=== PATIENT | female | born 1985 | race Caucasian/White ===

== ENCOUNTER 2022-09-07 11:02 | Outpatient (CLI) | payer BC ==
[2022-09-07 13:01] LABS: #Basophils 0.1 10x3/uL (0.0-0.2); #Eosinphils 0.2 10x3/uL (0.0-0.5); #Monocytes 0.8 10x3/uL (0.0-1.1); #Neutrophils 5.1 10x3/uL (1.5-8.4); %Basophils 0.9 % (0.0-2.0); %Eosinophils 2.5 % (0.0-6.0); %Lymphocytes 28.6 % (18.0-47.0); %Monocytes 8.9 % (0.0-10.0); %Neutrophils 58.8 % (40.0-75.0); Hemoglobin 14.8 g/dL (12.0-15.5); Mean Corpuscular HGB CONC 35.1 g/dL (32.0-36.0); Mean Corpuscular Hemoglobin 30.1 pg (27.0-33.0); Mean Corpuscular Volume 85.9 fl (81.6-98.3); Mean Platelet Volume 9.4 fl (7.4-10.4); Platelet Count 328 10x3/uL (150-450); RBC Distribution Width 12.4 % (11.5-14.5); Red Blood Cell (RBC) Count 4.91 10x6/uL (3.90-5.03); White Blood Cell (WBC) Count 8.7 10x3/uL (3.5-10.5)
== END 2022-09-07 11:03 | disposition home or self-care (01) ==
LOC: LABBT 11:02
PROVIDERS: ATTEND Orthopaedic Surgery Hand Surgery
DX: Z01.812 Encounter for preprocedural laboratory examination (principal); G56.03 Carpal tunnel syndrome, bilateral upper limbs
CPT/HCPCS: 85025

== ENCOUNTER 2022-09-10 06:59 | Day surgery (SDC) | payer BC ==
[2022-09-09 11:19] VITALS: BMI 32.4
[2022-09-10] MEDS ORDERED: Bacitracin Zinc Ointment 30 gm TUBE ONE (07:38)
[2022-09-10] MEDS ORDERED: Neomycin-Polymyxin 1 ML AMP ONE (07:38)
[2022-09-10] MEDS ORDERED: Bupivacaine PF 0.5% 30 ML VIAL ONE (07:38)
[2022-09-10] MEDS ORDERED: Midazolam HCl 2 mg/2 ml Vial ONE (07:52)
[2022-09-10] MEDS ORDERED: Sodium Chloride 0.9% 100 ML ONE (08:05)
[2022-09-10] MEDS ORDERED: CEFAZOLIN 2 GM VIAL ONE (08:05)
[2022-09-10] MEDS ORDERED: fentaNYL Citrate/PF 100 MCG/2 ML SYRINGE ONE (08:06)
[2022-09-10] MEDS ORDERED: Ondansetron PF 4 MG/2 ML Vial ONE (08:10)
[2022-09-10] MEDS ORDERED: Dexamethasone 20 MG/5 ML VIAL ONE (08:10)
[2022-09-10] MEDS ORDERED: PROPOFOL 200 MG/20 ML VIAL ONE (08:10)
[2022-09-10] MEDS ORDERED: Betamet Acet/Betamet Na Ph 30 MG/5 ML VIAL ONE (08:29)
[2022-09-10] MEDS ORDERED: Meperidine HCl/PF 25 MG/ML VIAL ONE (09:12)
[2022-09-10] MEDS ORDERED: Ketorolac Tromethamine 30 MG/ML VIAL ONE (09:36)
[2022-09-10] MEDS ORDERED: FENTANYL 50 MCG/ML VIAL 50 MCG/ML VIAL ONE (09:44)
== END 2022-09-10 10:45 | disposition home or self-care (01) ==
LOC: SDC 06:59
PROVIDERS: ATTEND Orthopaedic Surgery Hand Surgery
PROC: 01N50ZZ Release Median Nerve, Open Approach (ICD-10-PCS; principal; 2022-09-10)
DX: G56.03 Carpal tunnel syndrome, bilateral upper limbs (principal); G56.23 Lesion of ulnar nerve, bilateral upper limbs
CPT/HCPCS: J0702; J1100; J1885; J2175; J2250; J2405; J2704; J3010; J3490; S0020

== ENCOUNTER 2024-10-26 12:10 | Emergency (ER) | payer BC ==
[2024-10-26 12:48] LABS: #Basophils 0.03 10x3/uL (0.0-0.2); %Basophils 0.4 % (0.0-1.0); %Eosinophils 0.8 % (0.0-10.0); %Lymphocytes 26.6 % (21.0-51.0); %Monocytes 12.2 % (0.0-10.0); %Neutrophils 59.7 % (42.0-75.0); Hematocrit 41.9 % (36.0-47.0); Hemoglobin 14.5 g/dL (12.0-16.0); Mean Corpuscular HGB CONC 34.6 g/dL (32.0-36.0); Mean Corpuscular Volume 86.6 fL (78.0-98.0); Mean Platelet Volume 9.2 fL (7.4-10.4); Platelet Count 265 10x3/uL (130-400); Red Blood Cell (RBC) Count 4.84 mill/uL (4.20-5.40)
[2024-10-26 13:04] LABS: ALT (SGPT) 17 U/L (8-55); AST (SGOT) 24 U/L (5-34); Albumin 4.3 g/dL (3.5-5.0); Alkaline Phosphatase 58 U/L (40-110); Anion Gap 12 mmol/L (10-20); BUN (Urea Nitrogen) 10 mg/dL (7.0-18.7); Bilirubin, Total 0.5 mg/dL (0.2-1.2); Calc. Creatinine Clearance 0 mL/min (70-130); Calcium 9.4 mg/dL (7.8-10.44); Carbon Dioxide 20 mmol/L (22-29); Chloride 108 mmol/L (98-107); Estimated GFR 112; Globulin 2.9 g/dL (2.4-3.5); Glucose 85 mg/dL (70-105); Potassium 4.2 mmol/L (3.5-5.1); Protein, Total 7.2 g/dL (6.0-8.3); Sodium 136 mmol/L (136-145)
[2024-10-26 13:09] LABS: Troponin I Less than 0.010 ng/mL (< 0.028)
[2024-10-26] MEDS ORDERED: Ibuprofen 800 MG TAB ONE (15:55)
[2024-10-26] MEDS ORDERED: predniSONE 20 MG TAB ONE (15:55)
== END 2024-10-26 16:01 | disposition home or self-care (01) ==
LOC: ERS 12:10
DX: B34.9 Viral infection, unspecified (principal); R07.81 Pleurodynia
CPT/HCPCS: 36415; 71045; 80053; 84484; 85025; 93005; 94760; J7512